=== PATIENT | female | born 1930 | race Caucasian/White ===

== ENCOUNTER → 2018-07-17 | Outpatient (CLI) | payer MEDICARE ==
[2018-07-17 11:44] LABS: CREATININE 1.1 mg/dL (0.5-1.5)
== END | disposition home or self-care (01) ==
LOC: LAB 11:10
PROVIDERS: ATTEND Otolaryngology Plastic Surgery within the Head & Neck
DX: G50.0 Trigeminal neuralgia (principal)
CPT/HCPCS: 36415; 82565; 84520

== ENCOUNTER → 2018-07-24 | Outpatient (CLI) | payer MEDICARE ==
[~2018-07-24] MED LIST: IOHEXOL-350 50ML VIAL IV ONE
== END | disposition home or self-care (01) ==
LOC: RAH 07:55
PROVIDERS: ATTEND Otolaryngology Plastic Surgery within the Head & Neck
DX: G50.0 Trigeminal neuralgia (principal)
CPT/HCPCS: 70488; Q9967